=== PATIENT | male | born 1965 | race Caucasian/White ===

== ENCOUNTER 2017-11-22 09:09 | Outpatient (CLI) | payer OTHER | END 2017-11-22 09:26 | disposition home or self-care (01) | LOC: LAB 09:09 → EDBD 09:09 → LAB 09:26 | DX: E11.9 Type 2 diabetes mellitus without complications (principal); Z12.5 Encounter for screening for malignant neoplasm of prostate; Z12.11 Encounter for screening for malignant neoplasm of colon; R42 Dizziness and giddiness ==

== ENCOUNTER 2018-12-06 07:14 | Emergency (ER) | payer OTHER ==
[~2018-12-06] VITALS: Ht 175.3 cm; Wt 93.0 kg
== END 2018-12-06 11:21 | disposition home or self-care (01) ==
LOC: ER 07:14
DX: N20.0 Calculus of kidney (principal); R10.31 Right lower quadrant pain

== ENCOUNTER 2018-12-13 14:06 | Outpatient (CLI) | payer OTHER | END 2018-12-13 14:12 | disposition home or self-care (01) | LOC: RAD 14:06 | DX: N13.2 Hydronephrosis with renal and ureteral calculous obstruction (principal); N23 Unspecified renal colic; E66.3 Overweight; Z03.89 Encounter for observation for other suspected diseases and conditions ruled out; R74.8 Abnormal levels of other serum enzymes; Z80.0 Family history of malignant neoplasm of digestive organs; R73.09 Other abnormal glucose ==

== ENCOUNTER 2021-08-09 07:41 | Emergency (ER) | payer OTHER ==
[~2021-08-09] VITALS: Ht 167.6 cm; Wt 88.0 kg
== END 2021-08-09 13:01 | disposition home or self-care (01) ==
LOC: ER 07:41
DX: N23 Unspecified renal colic (principal)